=== PATIENT | female | born 1925 | race Caucasian/White ===

== ENCOUNTER → 2017-02-22 | Outpatient (CLI) | payer OTHER ==
[~2017-02-22] MED LIST: AMLODIPINE BESYL5 MG PO; APAP500; COLACE100 MG PO; ESTRACE0.5 MG PO; ESTRACE1 MG PO; HYDROCODONE-AP1 EAC6 PO; MAGNESIUM CITR296 ML PO; MEDROLDOSEPACK PO; MIRALAX17 GM PO; MOBIC15 MG PO; NABUMETONE 500500 M2 PO; NORCO 5-325 TA1 EACH PO; SENNA LAXATIVE1 EACH PO; TRAMADOL 50 MG50 MG PO; TRAZODONE HCL50 MG PO
== END ==
LOC: RAD 11:31
DX: M16.0 Bilateral primary osteoarthritis of hip (principal); M43.8X6 Other specified deforming dorsopathies, lumbar region; M47.895 Other spondylosis, thoracolumbar region; M25.552 Pain in left hip; R10.2 Pelvic and perineal pain; W19.XXXA Unspecified fall, initial encounter

== ENCOUNTER 2017-03-17 13:28 | Inpatient (IN) | payer OTHER ==
[~2017-03-17] VITALS: Ht 162.6 cm; Wt 73.4 kg
--- NOTE | ~2017-03-17 | 2DMMODE ---
[facility] [address] [place] [address] 2 D/M-MODE ECHOCARDIOGRAM Name: TERESSA PHILLIPS Room #: 203-P [facility] IN .R.#: [id number] Admission: 03/17/17 Attend Phys: Mauricio Mohr, Discharge: Date of : [birth year] Date of Service: 03/18/17 0951 Report #: [id number] THIS REPORT FOR: //name// APPROVED REPORT Study performed: 03/18/2017 08:32:51 EXAM: Comprehensive 2D, Doppler, and color-flow Echocardiogram Patient Location: Echo lab Room #: 203 Status: routine BSA: 1.78 HR: 53 bpm BP: 132/68 mmHg Rhythm: NSR Other Information Study Quality: Good Indications Afib, hx: HTN 2D Dimensions RVDd: 34.87 mm LVEF(%): 53.69 (>50%) IVSd: 9.96 (7-11mm) LVOT Diam: 21.79 (18-24mm) LVDd: 52.66 mm PWd: 8.59 (7-11mm) LVDs: 37.95 (25-40mm) Aortic Root: 35.09 mm Foreman's LVEF: 53.69 % Volumes Left Atrial Volume (Systole) Single Plane 4CH: 40.53 mL Single Plane 2CH: 53.11 mL LA ESV Index: 28.00 mL/m2 Aortic Valve AoV Peak Prince.: 1.15 m/s AO Peak Gr.: 5.25 mmHg LVOT Max P.88 mmHg LVOT Max V: 0.98 m/s STACEY Vmax: 3.20 cm2 Mitral Valve E/A Ratio: 0.9 MV Decel. Time: 295.62 ms [facility] charity: [address] [address] 2 D/M-MODE ECHOCARDIOGRAM Name: TERESSA PHILLIPS Room #: 203-P [facility] IN ..#: [id number] Admission: 03/17/17 Attend Phys: Mauricio Mohr, Discharge: Date of : [birth year] Date of Service: 03/18/17 0951 Report #: [id number] MV E Max Prince.: 0.86 m/s MV A Prince.: 0.93 m/s MV PHT: 85.73 ms IVRT: 96.89 ms Pulmonary Valve PV Peak Prince.: 0.90 m/s PV Peak Gr.: 3.27 mmHg Pulmonary Vein P Vein S: 0.52 m/s P Vein A: 0.28 m/s P Vein D: 0.45 m/s P Vein A Dur.: 133.8 msec P Vein S/D Ratio: 1.16 Tricuspid Valve TR Peak Prince.: 2.32 m/s RAP Estimate: 5.00 mmHg TR Peak Gr.: 21.52 mmHg PA Pressure: 27.00 mmHg Left Ventricle The left ventricle is normal size. There is normal LV segmental wall motion. Mild basal septal hypertrophy is present. Left ventricular systolic function is normal. LVEF is 55-60%. Mild diastolic dysfunction is present (impaired relaxation pattern). Right Ventricle The right ventricle is normal size. The right ventricular systolic function is normal. Atria The left atrium size is normal. The right atrium size is normal. Aortic Valve Aortic valve leaflets are mildly thickened. Trace aortic regurgitation. There is no aortic valvular stenosis. Mitral Valve Mitral valve leaflets are mildly thickened. Mild mitral annular calcification. Mild mitral regurgitation. Tricuspid Valve The tricuspid valve is normal in structure. Mild tricuspid regurgitation. Estimated PAP is 25-30mmHg. Pulmonic Valve The pulmonary valve is normal in structure. Trace pulmonic [address] [address] 2 D/M-MODE ECHOCARDIOGRAM Name: ALANTERESSA Room #: 203-P [facility] IN [facility]#: [id number] Admission: 03/17/17 Attend Phys: Mauricio Mohr, Discharge: Date of : [birth year] Date of Service: 03/18/17 0951 Report #: [id number] regurgitation. Great Vessels The aortic root is normal in size. The ascending aorta is normal in size. IVC is normal in size and collapses >50% with inspiration. Pericardium There is no pericardial effusion. <Conclusion> The left ventricle is normal size. Mild basal septal hypertrophy is present. LVEF is 55-60%. Mild diastolic dysfunction is present (impaired relaxation pattern). The right ventricle is normal size. The left atrium size is normal. The right atrium size is normal. Aortic valve leaflets are mildly thickened. There is no aortic valvular stenosis. Mild mitral regurgitation. Mild tricuspid regurgitation. Estimated PAP is 25-30mmHg. There is no pericardial effusion. <ELECTRONICALLY SIGNED> By: Sunday Tyler MD, FACC 03/18/1751 0 0 Sunday Tyler MD, FACC /INF
--- NOTE | ~2017-03-17 | EKG ---
[address] [address] ELECTROCARDIOGRAM REPORT Name: TERESSA PHILILPS Room #: 170-6 ADM IN M.R.#: [id number] Admission: 03/17/17 Attend Phys: Mauricio Mohr DO Discharge: Date of : [birth year] Report #: [id number] THIS REPORT FOR: //name// [facility] ED Test Date: 2017-03-17 Test Time: 13:32:32 Pat Name: TERESSA PHILLIPS Department: Room: 170 Gender: F Market Development Manager: BRIAN : 1925 Requested By: Nancy Fabian Order Number: [id number] MD: Tom Staples Measurements Intervals [place] Rate: 156 P: [place]: QRS: 12 QRSD: 90 T: 93 QT: 275 QTc: 443 Interpretive Statements Atrial fibrillation with rapid V-rate Repolarization abnormality, prob rate related Compared to ECG 09/14/2007 07:09:01 Early repolarization now present Sinus bradycardia no longer present Electronically Signed On 03-17-2017 16:08:29 FRONT DESK PERSON by Tom Staples [email or web address] <ELECTRONICALLY SIGNED> By: Tom Staples MD 03/17/17 1608 1332 1332 Tom Staples MD /EPI
--- NOTE | ~2017-03-17 | EKG ---
[address] [address] ELECTROCARDIOGRAM REPORT Name: ALANTERESSA Mauro Room #: 170-6 ADM IN M.R.#: [id number] Admission: 03/17/17 Attend Phys: Mauricio Mohr DO Discharge: Date of : [birth year] Report #: [id number] THIS REPORT FOR: //name// [facility] Test Date: 2017-03-17 Test Time: 13:01:30 Pat Name: TERESSA PHILLIPS Department: Room: 170 Gender: F Shipping And Receiving Coordinator: Kimi GRUBBS : 1925 Requested By: Mauricio Shelley Order Number: [id number] MD: Tom Staples Measurements Intervals [place] Rate: 147 P: [place]: QRS: 17 QRSD: 94 T: 32 QT: 314 QTc: 492 Interpretive Statements Atrial fibrillation with rapid V-rate Repolarization abnormality, prob rate related Compared to ECG 09/14/2007 07:09:01 Early repolarization now present Sinus bradycardia no longer present Electronically Signed On 03-17-2017 16:08:21 MASTER OF [employer] by Tom Staples [email or web address] <ELECTRONICALLY SIGNED> By: Tom Staples MD 03/17/17 1608 1301 1301 Tom Staples MD /EPI
[2017-03-17 12:40] VITALS: BP 127/94
[2017-03-17 13:11] LABS: MCH 31.1 pg (26.0-34.0); MCHC 33.5 g/dL (28.0-37.0); RBC 4.19 mil/uL (4.20-5.00); RDW 13.4 % (10.5-14.5); WBC 7.1 thou/uL (4.0-11.0)
[2017-03-17 13:21] LABS: CALCIUM 9.7 mg/dL (8.5-10.1); CREATININE 0.9 mg/dL (0.6-1.0)
[2017-03-17 13:28] VITALS: BP 103/83
[2017-03-17] MEDS ORDERED: COZAAR 25 MG TA25 M1 PO ×2 (13:35→13:37)
[2017-03-17] MEDS ORDERED: REQUIP 0.25 M0.25 M1 PO ×2 (13:36→13:37)
[2017-03-17] MEDS ORDERED: TRAZODONE HCL50 MG PO (13:37)
[2017-03-17 14:29] LABS: ABSOLUTE NEUTROPHILS 5.3 thou/uL (1.4-8.2); BASOPHILS 1.3 % (0.0-2.0); EOSINOPHILS 0.9 % (0.0-3.0); HEMATOCRIT 39.1 % (37.0-47.0); HEMOGLOBIN 13.2 gm/dL (12.0-15.0); LYMPHOCYTES 18.8 % (24.0-44.0); MCH 31.5 pg (26.0-34.0); MCHC 33.9 g/dL (28.0-37.0); MONOCYTES 10.6 % (1.0-8.0); PLATELET COUNT 312 thou/uL (150-400); POLYS 68.4 % (36.0-66.0); RDW 13.4 % (10.5-14.5); WBC 7.7 thou/uL (4.0-11.0)
[2017-03-17 14:50] LABS: ALBUMIN 3.3 g/dL (3.4-5.0); ANION GAP 10 mmol/L (7-16); BUN 16 mg/dL (7-18); CALCIUM 9.1 mg/dL (8.5-10.1); CHLORIDE 104 mmol/L (98-107); CO2 22 mmol/L (21-32); CREATININE 0.8 mg/dL (0.6-1.0); GLUCOSE 98 mg/dL (74-106); SGOT 26 U/L (15-37); SGPT 26 U/L (30-65); SODIUM 136 mmol/L (136-145); TOTAL BILIRUBIN 0.9 mg/dL (<0.1-1.0); TOTAL PROTEIN 7.2 g/dL (6.4-8.2); TROPONIN-I < 0.04 ng/mL (<0.06)
[2017-03-17 19:11] VITALS: BP 134/74
[2017-03-17 20:28] VITALS: BP 134/74
[2017-03-17 20:40] VITALS: BP 124/63
[2017-03-17] MEDS ORDERED: ESTRADIOL 1 MG T1 M1 PO (20:53)
[2017-03-17] MEDS ORDERED: HYDROCODONE-AP1 EAC6 PO (20:57)
[2017-03-17 23:45] VITALS: BP 129/67
[2017-03-18 03:26] VITALS: BP 118/46
[2017-03-18 03:40] LABS: CALCIUM 8.5 mg/dL (8.5-10.1); CREATININE 0.8 mg/dL (0.6-1.0); POTASSIUM 3.7 mmol/L (3.5-5.1)
[2017-03-18 03:42] LABS: HEMATOCRIT 33.5 % (37.0-47.0); HEMOGLOBIN 11.5 gm/dL (12.0-15.0); MCHC 34.2 g/dL (28.0-37.0); MCV 93.5 fL (80.0-100.0); PLATELET COUNT 270 thou/uL (150-400); RBC 3.58 mil/uL (4.20-5.00); RDW 13.2 % (10.5-14.5); WBC 6.2 thou/uL (4.0-11.0)
[2017-03-18] MEDS ORDERED: REQUIP0.5 MG PO (04:47)
[2017-03-18 07:34] VITALS: BP 132/68
[2017-03-18] MEDS ORDERED: XARELTO20 MG PO (10:29)
[2017-03-18] MEDS ORDERED: CARDIZEM CD 18180 M3 PO (10:30)
[2017-03-18] MEDS ORDERED: HYDROCODONE-AP1 EAC6 PO (10:30)
[2017-03-18 11:33] VITALS: BP 129/62
[2017-03-18 13:43] VITALS: BP 129/62
[2017-03-18 14:04] VITALS: BP 129/62
[2017-04-06] MEDS ORDERED: LOPRESSOR25 PO (13:35)
[2017-04-06] MEDS ORDERED: CALCIUM 600 +1 EAC1 PO (13:53)
[2017-04-06] MEDS ORDERED: MULTI VITAMIN1 EACH PO (13:53)
[2017-04-06] MEDS ORDERED: BIOTIN1 MG PO (13:55)
[2017-04-06] MEDS ORDERED: VITAMIN D2000 UNI2 PO (13:55)
[2017-04-06] MEDS ORDERED: REQUIP0.5 MG PO (13:57)
[2017-04-06] MEDS ORDERED: MAGOX 400400 MG PO (14:02)
== END 2017-03-18 14:47 | disposition home or self-care (01) | DRG 309 ==
LOC: ER 13:28 → SPEC 13:28 → EROBS 15:20 → 2N 15:20
PROVIDERS: Family Medicine; Physician Assistant; Radiology Diagnostic Radiology
PROC: 0W9K3ZZ Drainage of Upper Back, Percutaneous Approach (ICD-10-PCS; principal; 2017-03-17)
DX: I48.91 Unspecified atrial fibrillation (principal); E44.1 Mild protein-calorie malnutrition; I10 Essential (primary) hypertension; G25.81 Restless legs syndrome; G89.29 Other chronic pain; M54.9 Dorsalgia, unspecified; M71.38 Other bursal cyst, other site
CPT/HCPCS: 10797

== ENCOUNTER → 2017-04-06 | Outpatient (CLI) | payer OTHER ==
[~2017-04-06] VITALS: Ht 162.6 cm; Wt 70.3 kg
[~2017-04-06] MED LIST changes: +BIOTIN1 MG PO; +CALCIUM 600 +1 EAC1 PO; +CARDIZEM CD 18180 M3 PO; +COZAAR 25 MG TA25 M1 PO; +ESTRADIOL 1 MG T1 M1 PO; +LOPRESSOR25 PO; +MAGOX 400400 MG PO; +MULTI VITAMIN1 EACH PO; +REQUIP 0.25 M0.25 M1 PO; +REQUIP0.5 MG PO; +VITAMIN D2000 UNI2 PO; +XARELTO20 MG PO
[2017-04-06 13:30] VITALS: BP 126/63
== END ==
LOC: SEN 12:56
DX: I48.91 Unspecified atrial fibrillation (principal); E55.9 Vitamin D deficiency, unspecified; G47.00 Insomnia, unspecified; G25.81 Restless legs syndrome